=== PATIENT | male | born 2000 | race Hispanic/Latino ===

== ENCOUNTER 2023-05-18 21:02 | Emergency (ER) | payer SELFPAY ==
[2023-05-18] MEDS ORDERED: Ketorolac Tromethamine 30 MG/ML VIAL ONE (21:15)
== END 2023-05-18 21:26 | disposition home or self-care (01) ==
LOC: CSHERS 21:02
DX: K02.9 Dental caries, unspecified (principal); K03.81 Cracked tooth
CPT/HCPCS: 96372; 99282; J1885